=== PATIENT | female | born 1975 | race African-American/Black ===

== ENCOUNTER 2024-06-14 20:37 | Emergency (ER) | payer BC ==
[~2024-06-14] VITALS: Ht 175.3 cm; Wt 86.0 kg
[2024-06-14 20:56] VITALS: O2SAT 98
[2024-06-14 21:30] LABS: CLARITY URINE CLOUDY (CLEAR); COLOR URINE BROWN (YELLOW); PROTEIN URINE 3+ (NEGATIVE); SPECIFIC GRAVITY URINE 1.025 (1.005-1.030)
[2024-06-14 21:31] LABS: GLUCOSE URINE NEGATIVE (NEGATIVE); KETONES URINE TRACE (NEGATIVE); LEUKOCYTE ESTERASE URINE 3+ (NEGATIVE); NITRITE URINE POSITIVE (NEGATIVE); OCCULT BLOOD URINE 3+ (NEGATIVE)
[2024-06-14 21:38] LABS: RBC URINE TNTC /hpf (0-2); WBC URINE TNTC /hpf (0-2)
[2024-06-14 21:39] LABS: BACTERIA URINE 4+; SQUAMOUS EPITHELIAL CELL URINE 1+ /lpf (RARE/1+)
[2024-06-14 21:52] LABS: BASOPHILS % 0.4 % (0.0-2.0); EOSINOPHILS % 0.2 % (0.0-5.0); HEMATOCRIT. 44.5 % (36.0-48.0); HEMOGLOBIN. 14.5 g/dL (12.0-16.0); LYMPHOCYTES % 7.4 % (20.0-50.0); MEAN CORPUSCULAR HEMOGLOBIN 30.9 pg (28.0-32.0); MEAN CORPUSCULAR HGB CONC 32.5 g/dL (31.0-37.0); MEAN PLATELET VOLUME 8.5 fl (7.4-10.4); MONOCYTES % 7.3 % (2.0-8.0); NEUTROPHILS % 84.7 % (40.0-76.0); PLATELET 267 x1000/uL (130-400); RED BLOOD CELL COUNT 4.68 mill/uL (4.2-5.4); RED CELL DISTRIBUTION WIDTH 13.6 % (11.6-14.6); WHITE BLOOD COUNT 12.2 x1000/uL (4.5-11.0)
[2024-06-14 21:57] LABS: CHLORIDE 106 mEq/L (98-107); SODIUM 140 mEq/L (136-145)
[2024-06-14 21:58] LABS: CARBON DIOXIDE 26 mEq/L (21-32)
[2024-06-14 21:59] LABS: CALCIUM 9.6 mg/dL (8.7-10.4)
[2024-06-14 22:03] LABS: CREATININE 0.9 mg/dL (0.6-1.0); GLUCOSE 139 mg/dL (70-105); UREA NITROGEN BLOOD 12 mg/dL (9-23)
[2024-06-14] MEDS ORDERED: SULF1TAB48 MT (22:28)
[2024-06-14] MEDS ORDERED: PHEN-815 MT (22:28)
[2024-06-14 22:36] LABS: UCG SCREEN NEGATIVE
[2024-06-14 22:37] LABS: UCG KIT LOT# 888041
[2024-06-14] MEDS: KETOROLAC 30MG/ML VIAL IM ONE (22:40)
[2024-06-14 22:45] VITALS: BP 141/88; PULSE 90; RESP 16; TEMP 36.8; O2SAT 98
== END 2024-06-14 22:46 | disposition home or self-care (01) ==
LOC: ER 20:37
DX: R31.9 Hematuria, unspecified (principal); R11.2 Nausea with vomiting, unspecified; N12 Tubulo-interstitial nephritis, not specified as acute or chronic; Z90.710 Acquired absence of both cervix and uterus; Z79.899 Other long term (current) drug therapy
CPT/HCPCS: 99283; 80048; 81003; 81025; 83690; 85025; 87086; 87186; 87077; 36415; 96372; J1885